=== PATIENT | female | born 1945 | race Caucasian/White ===

== ENCOUNTER 2021-03-09 13:31 | Emergency (ER) | payer MEDICARE ==
[~2021-03-09 13:31] MED LIST: ASPIR 8181 MG PO; ASPIRIN CHEWABL81 MG PO; AZITHROMYCIN250 MG PO; AZITHROMYCIN500 MG PO; BROMFED DM COU473 ML PO; BUTALB-ACETAMI1 EACH PO; KEFLEX CAP 500500 MG PO; OMNICEF 300 MG300 MG PO; PHENERGAN 12.12.5 M1 PO; PROAIR DIGIHAL90 MCG INH; VIBRAMYCIN100 MG PO; ZOFRAN ODT 4 MG4 MG SL
[2021-03-09] MEDS ORDERED: AUGMENTIN 875-1 EACH PO (14:29)
== END 2021-03-09 16:45 | disposition home or self-care (01) ==
LOC: ER1 13:31
DX: J01.90 Acute sinusitis, unspecified (principal); I10 Essential (primary) hypertension; Z90.49 Acquired absence of other specified parts of digestive tract; Z90.710 Acquired absence of both cervix and uterus; Z88.2 Allergy status to sulfonamides; Z88.5 Allergy status to narcotic agent; Z85.118 Personal history of other malignant neoplasm of bronchus and lung
CPT/HCPCS: 96372; 99282; J1100

== ENCOUNTER → 2021-06-06 | Outpatient (CLI) | payer MEDICARE ==
[~2021-06-06] MED LIST changes: +AUGMENTIN 875-1 EACH PO
== END ==
LOC: RAD 15:29
DX: R06.02 Shortness of breath (principal); R91.8 Other nonspecific abnormal finding of lung field
CPT/HCPCS: 71046

== ENCOUNTER 2021-10-07 21:58 | Emergency (ER) | payer MEDICARE ==
[2021-10-07 22:46] LABS: HEMOGLOBIN 19.3 gm/dl (12.3-15.3); RED BLOOD COUNT 6.07 M/UL (4.00-5.10); WHITE BLOOD COUNT 7.2 K/UL (4.5-11.0)
[2021-10-07 23:19] LABS: BUN/CREATININE RATIO 18 (0-10)
[2021-10-08] MEDS ORDERED: ZITHROMAX250 MG PO (05:55)
[2021-10-08] MEDS ORDERED: OMNICEF 300 MG300 MG PO (05:55)
== END 2021-10-08 07:39 | disposition home or self-care (01) ==
LOC: ER1 21:58
PROVIDERS: Family Medicine
DX: K59.00 Constipation, unspecified (principal); J96.91 Respiratory failure, unspecified with hypoxia; J18.9 Pneumonia, unspecified organism; Z20.822 Contact with and (suspected) exposure to COVID-19; Z85.118 Personal history of other malignant neoplasm of bronchus and lung
CPT/HCPCS: 71045; 74018; 80053; 82550; 82553; 83874; 84484; 85025; 93005; 99284; Q9967; U0002

== ENCOUNTER 2021-10-10 00:05 | Emergency (ER) | payer MEDICARE ==
[~2021-10-10 00:05] MED LIST changes: +ZITHROMAX250 MG PO
[2021-10-10 02:25] LABS: HEMOGLOBIN 18.6 gm/dl (12.3-15.3); RED BLOOD COUNT 5.89 M/UL (4.00-5.10); WHITE BLOOD COUNT 5.5 K/UL (4.5-11.0)
[2021-10-10 02:48] LABS: BUN/CREATININE RATIO 21 (0-10)
== END 2021-10-10 04:25 | disposition home or self-care (01) ==
LOC: ER1 00:05
PROVIDERS: Physician Assistant
DX: J18.9 Pneumonia, unspecified organism (principal); R51.9 Headache, unspecified; M25.512 Pain in left shoulder; F41.9 Anxiety disorder, unspecified; I10 Essential (primary) hypertension; C34.90 Malignant neoplasm of unspecified part of unspecified bronchus or lung
CPT/HCPCS: 70450; 71045; 80053; 81001; 82550; 82553; 83874; 84484; 85025; 93005; 99284